=== PATIENT | male | born 1955 | race Caucasian/White ===

== ENCOUNTER → 2017-07-20 07:10 | Outpatient (CLI) | payer OTHER, SELFPAY ==
--- NOTE | 2017-07-20 07:11 | CT_ITS ---
STUDY: CT ABDOMEN AND PELVIS WITH CONTRAST REASON FOR EXAM: Male, 62 years old. Elevated CEA, elevated bilirubin RADIATION DOSAGE (If Supplied By Facility): CTDIvol = ( 14.23 ) mGy, DLP = ( 1137.46 ) mGycm TECHNIQUE: Transaxial images were obtained from the lower chest to the upper thighs with oral contrast. 100 ml of Isovue 300 contrast was administered. Sagittal and coronal images were reconstructed. Individualized dose optimization techniques were used for this CT. COMPARISON: October 27, 2013 FINDINGS: The visualized lung bases are unremarkable. There is no pleural effusion. The heart is normal in size. The liver is unremarkable. There are surgical clips in the gallbladder fossa consistent with a prior cholecystectomy. The spleen is unremarkable. The pancreas is unremarkable. The adrenal glands are unremarkable. There are two nonobstructing stones in the lower pole of the right kidney measuring about 2 mm each, stable. There is no dilatation of the collecting system in the right kidney. There are benign cysts in the left kidney. There is a stable 2 mm nonobstructing stone in the midpole of the left kidney. There are a few stable small nonobstructing stones in the lower pole of the left kidney measuring no more than 2 mm in size. There is no dilatation of the collecting system in the left kidney. The stomach is unremarkable. The small bowel is unremarkable. There are diverticula in the distal colon without adjacent stranding. The appendix is visualized and appears normal. There are minimal vascular calcifications. The inferior vena cava is unremarkable. The retroperitoneum is unremarkable. There is no free fluid in the abdomen. The urinary bladder is unremarkable. The prostate is normal in size with calcifications. There are small phleboliths scattered in the lower pelvis. There is questionable fluid around the right testicle. There are mild degenerative changes in the visualized spine. There are marked degenerative disc changes at L5-S1. CT/Abdomen/Pelvis WITH Contrast IMPRESSION: There are no abnormal masses in the liver or pancreas. There is no biliary ductal dilatation. There is diverticulosis of the distal colon. No abnormal masses are evident within the bowel, however CT is not sensitive for this finding. There is no ascites, free air, inflammation or significant lymphadenopathy. There is a questionable right hydrocele. A scrotal ultrasound can be considered for further evaluation. Electronically Signed: Mini Diaz MD at 17:36 EDT Tel Direct: [phone], Service support ,
== END ==
PROVIDERS: Family Provider Family Medicine; PCP Family Medicine; Visit Provider Family Medicine
DX: R97.0 Elevated carcinoembryonic antigen [CEA] (principal)
CPT/HCPCS: 74177; Q9967

== ENCOUNTER 2017-08-05 07:20 | Day surgery (SDC) | payer OTHER, SELFPAY ==
[2017-08-05 07:45] VITALS: BP 141/89; PULSE 74; RESP 18; TEMP 36.8; O2SAT 99; BMI 27.6
[2017-08-05 08:54] VITALS: BP 112/66; BP 141/89; PULSE 72; RESP 16; TEMP 36.6; O2SAT 97
--- NOTE | 2017-08-05 08:54 | OP.PCM_ITS ---
Operative Report Date of Procedure: 08/05/17 Preop diagnosis: [Patient for screening colonoscopy] Postop diagnosis: [Screening colonoscopy performed no evidence of any polyps in the colon] Anesthesia:[Provided a MAC] Instrument:[Olympus adjustable pediatric colonoscope] Informed consent was taken prior to procedure. The patient was brought to the endoscopy suite and placed in the left shoulder down. Anesthesia provided the MAC. Rectal exam was performed prior to inserting the scope. The colonoscope was passed in the rectum rectal mucosa was normal. Moving up the left colon with a few diverticuli across transverse colon mucosa was normal. Down the right colon the cecum was photographed the appendiceal orifice was noted large polyps in the right colon the patient had an excellent preparation. Terminal ileum was intubated the ileum was normal. Backup the right colon the mucosa was normal there were no large polyps seen across the transverse colon the vascular pedicles remain normal below the splenic flexure down to the left colon there were no large polyps seen. Retroflexion performed the rectum showed internal hemorrhoids the colon was decompressed and the patient tolerated procedure well. Impression: Screening colonoscopy patient had an elevated CEA Plan: Repeat a colonoscopy in 10 [address] CC a [address] Claros in [place]
[2017-08-05 09:00] VITALS: BP 110/78; BP 141/89; PULSE 70; RESP 16; O2SAT 97
[2017-08-05 09:05] VITALS: BP 119/85; BP 141/89; PULSE 70; RESP 14; O2SAT 97
[2017-08-05 09:10] VITALS: BP 118/81; BP 141/89; PULSE 65; RESP 16; TEMP 36.5; O2SAT 96
[2017-08-05 09:41] VITALS: BP 141/89
== END 2017-08-05 09:42 | disposition home or self-care (01) ==
LOC: EN 07:21 → AC 07:22
PROVIDERS: Family Provider Family Medicine; PCP Family Medicine; Visit Provider Internal Medicine Gastroenterology
PROC: 0DJD8ZZ Inspection of Lower Intestinal Tract, Via Natural or Artificial Opening Endoscopic (ICD-10-PCS; CPT 45378; principal; 2017-08-05 08:25)
DX: Z12.11 Encounter for screening for malignant neoplasm of colon (principal); K63.5 Polyp of colon; K57.30 Diverticulosis of large intestine without perforation or abscess without bleeding; K64.8 Other hemorrhoids; R97.0 Elevated carcinoembryonic antigen [CEA]; I10 Essential (primary) hypertension; E78.00 Pure hypercholesterolemia, unspecified; Z87.891 Personal history of nicotine dependence; Z85.820 Personal history of malignant melanoma of skin; Z79.82 Long term (current) use of aspirin; Z79.899 Other long term (current) drug therapy
CPT/HCPCS: 45378; J7120

== ENCOUNTER → 2018-05-12 12:22 | Outpatient (CLI) | payer OTHER, SELFPAY ==
[2018-05-12 14:04] LABS: Absolute Lymphocyte Count 2.07 X10^3/ul (0.83-4.51); Basophil# 0.02 X10^3/uL; Basophil% 0.3 % (0-1); Eosinophil# 0.13 X10^3/uL; Eosinophils% 1.9 % (0-5); Hematocrit 44.7 % (40-54); Hemoglobin 15.3 g/dl (13.0-16.5); Lymphocyte # 2.07 X10^3/ul (4.0); Lymphocyte % 30.1 % (19-41); Mean Corp Hgb Conc 34.2 g/gl (32-36); Mean Corpuscular Hgb 30.7 pg (27.0-32.0); Mean Corpuscular Volume 89.6 fL (80-94); Mean Platelet Vol. 10.1 fl (6.2-12.0); Monocyte# 0.65 X10^3/uL; Monocyte% 9.4 % (0-10); Neutrophil # 3.97 X10^3/uL (2.7-7.7); Neutrophil % 57.7 % (47-70); Platelet Count 250 K/mm3 (150-450); RBC Distribution Width CV 13.2 % (11.6-14.6); RBC Distribution Width SD 42.7 fl (35.1-43.9); Red Blood Count 4.99 M/mm3 (4.6-6.2); White Blood Count 6.9 K/mm3 (4.4-11.0)
[2018-05-12 14:07] LABS: POSITIVE COUNT NO; POSITIVE DIFFERENTIAL NO; POSITIVE MORPHOLOGY NO
[2018-05-12 14:39] LABS: Vitamin B12 540 pg/mL (211-911); Vitamin D,25 Hydroxy 17.8 ng/mL (29.95-100.01)
[2018-05-12 14:42] LABS: ALB/GLOB Ratio 1.1 RATIO (0.9-2.4); AST(SGOT) 22 U/L (15-37); Alanine Aminotransfer ALT/SGPT 28 U/L (16-61); Albumin, Serum 4.1 g/dL (3.2-5.0); Alkaline Phosphatase 75 U/L (45-117); BUN 14 mg/dL (7-18); BUN/Creat Ratio 15.1 RATIO (10-20); Calcium,Total 8.7 mg/dL (8.5-10.1); Creatinine, Serum 0.93 mg/dL (0.70-1.30); EST Glomerular Filtration Rate 88 mL/min (>60); Est Glom Filt Rate - Afr Amer 106 mL/min (>60); Globulin 3.9 g/dL (2.2-4.2); Glucose 85 mg/dL (74-106)
[2018-05-12 14:43] LABS: Anion Gap 8 (5-15); Chloride 107 mmol/L (98-107); PSA,Total - Annual Screen 1.03 ng/mL (0.00-4.00); Potassium 3.7 mmol/L (3.5-5.1); Sodium Level 141 mmol/L (136-145); Thyroid Stim Hormone (TSH) 0.71 uIU/mL (0.358-3.74)
[2018-05-13 00:15] LABS: Rapid Plasmin Reagin (RPR) NONREACTIVE (NONREACTIVE)
[2018-05-13 09:37] LABS: Hep C Antibodies <0.1 s/co ratio (0.0-0.9)
--- OUTSIDE RECORDS SUMMARY | 2018-07-17 04:30 | XMS RPT_ITS ---
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 Community group vitamins / Hospital E53.8(ICD-10) Repository 05/12/2018 Unknown E55.9 - Vitamin D Hayden, Garrison Chi Active [place] deficiency, Community unspecified / Hospital E55.9(ICD-10) Repository 05/12/2018 Unknown G30.9 - Alzheimer's Hayden, Garrison Chi Active [place] disease, unspecified / Community G30.9(ICD-10) Hospital Repository 07/20/2017 Unknown R97.0 - Elevated Florencio Shahram Active [place] carcinoembryonic Community antigen [CEA] / Hospital R97.0(ICD-10) Repository PROCEDURES PROCEDURES No Procedure Records FoundRESULTS RESULTS LOW DOSE CT LUNG Observed: 05/18/2018 Status: F Source: [facility] SCREENING 3:33 PM [facility] REPOSITORY [facility] Imaging Services [address] [place] [address] Lung Screening MR#: [id number] Acct: [id number] Name: [place] ANG[place] Rep #: [id number] : 1955 M 63 From: Jose Mixon MD PCP: Shahram Matias Status: REG CLI Study: Low Dose CT Lung Screening Date of Exam: 05/18/18 Exam# [id number] Ordering Dr: Garrison Blake MD STUDY: LOW DOSE CT LUNG CANCER SCREENING REASON FOR EXAM: Male, 63 years old. 20 pack-year smoking history. RADIATION DOSAGE (If Supplied By Facility): CTDIvol = ( 4.02 ) mGy, DLP = ( 133.41 ) mGycm TECHNIQUE: No contrast was administered. Low dose technique was utilized (average mAS-38 and kVp 120). 1.25 mm axial source images with a slice interval of 1.25- mm were reconstructed in lung windows. 2.5 mm axial source images with a slice interval of 2.5-mm were reconstructed in lung windows. 5.0 mm axial source images with a slice interval of 5.0-mm were reconstructed in soft tissue windows. Nodule measured using lung windows on PACS and/or independent workstation with automated measurement of minimum and maximum diameter. Nodule measurement reported as average diameter rounded to the nearest whole number. Growth is defined as an increase ins size of greater than 1.5 mm. COMPARISON: None. NODULES: No suspicious nodules are seen. Aorta: Atherosclerotic calcification. Coronary arteries: Coronary artery calcification. Other chest and abdominal findings: CT/Low Dose CT Lung Screening IMPRESSION: Lung-RADS category 2 - Continue annual screening with LDCT in 12 months. IMPORTANT NOTES FOR USE: ACR Lung-RADS Version 1.0 Assessment Categories Release Date: August 21, 2013 Category: Coded 0-4 bases on nodule(s) with highest degree of suspicion. Negative screen is defined as categories 1 and 2; a positive screen is defined as categories 3 and 4. Category 3 and 4A nodules that are unchanged on interval CT should be coded as category 2, and individuals returned to screening in 12 months. Category 4X: Category 3 or 4 nodules with additional imaging findings that increase the suspicion of lung cancer, such as spiculation, GGN that doubles in size in 1 year, enlarged lymph notes, etc. Category Modifiers: S (significant finding unrelated to lung cancer) and C (prior history of treated lung cancer) may be added to the 0-4 Lung-RADS Electronically Signed: Jose Mixon MD at 14:17 EST , Service support , CC: Shahram Matias; Garrison Blake MD Assembly Cleaner: Signed CBC W/DIFF, AUTOMATED Collected: 05/12/2018 Status: F Source: [facility] 12:24 PM [facility] REPOSITORY TYPE CODE TESTS RESULT OUT OF RANGE REFERENCE UNITS LAB L100.1000 4.4-11.0 K/mm3 Normal WBC 6.9 LAB L100.1200 4.6-6.2 M/mm3 Normal RBC 4.99 LAB L100.1300 13.0-16.5 g/dl Normal HGB 15.3 LAB L100.1400 40-54 % Normal HCT 44.7 LAB L100.1500 80-94 fL Normal MCV 89.6 LAB L100.1600 27.0-32.0 pg Normal MCH 30.7 LAB L100.1700 32-36 g/gl Normal MCHC 34.2 LAB L100.1810 11.6-14.6 % Normal RDW CV 13.2 LAB L100.1820 35.1-43.9 fl Normal RDW SD 42.7 LAB L100.1900 150-450 K/mm3 Normal PLT 250 LAB L100.2000 6.2-12.0 fl Normal MPV 10.1 LAB L100.2100 47-70 % Normal NEUT% 57.7 LAB L100.2200 19-41 % Normal LY% 30.1 LAB L100.2300 0-10 % Normal MONO% 9.4 LAB L100.2400 0-5 % Normal EO% 1.9 LAB L100.2500 0-1 % Normal BASO% 0.3 LAB L100.2550 0.0-0.9 % Normal IM GRAN % 0.600 Result Comment: IG% - Immature Granulocytes (promyelocytes, myelocytes and metamyelocytes) > 1% indicates that a LEFT SHIFT is Present. LAB L100.2620 2.0-7.7 X10 3/uL Normal Absolute Neut 4.0 LAB L100.2720 0.83-4.51 X10 3/ul Normal Absolute Lymph 2.07 Performed By: #### L100.0100 #### [facility] [address] [place], [address] VITAMIN B12 Collected: 05/12/2018 Status: F Source: [facility] 12:24 PM [facility] REPOSITORY TYPE CODE TESTS RESULT OUT OF RANGE REFERENCE UNITS LAB L503.0105 211-911 pg/mL Normal Vitamin B12 540 Performed By: #### L503.0105, L506.1000 #### [facility] [address] [place], [address] VITAMIN D,25 HYDROXY Collected: 05/12/2018 Status: F Source: [facility] 12:24 PM [facility] REPOSITORY TYPE CODE TESTS RESULT OUT OF REFERENCE UNITS RANGE LAB L506.1000 29.95-100.01 ng/mL Low Vitamin D 17.8 25-OH Result Comment: Vitamin D 25(OH) Status Range Deficiency <20 ng/mL (50nmol/L) Insuffciency 20 - 30 ng/mL (50 - 75 nmol/L) Sufficiency 30 - 100 ng/mL (75 - 250 nmol/L) Toxicity >100 ng/mL (>250 nmol/L) Performed By: #### L503.0105, L506.1000 #### [facility] [address] [place], [address] COMPREHENSIVE METABOLIC Collected: 05/12/2018 Status: F Source: [facility] 12:24 PM [facility] REPOSIT[facility] Order Comment: Is Patient Taking Vitamins or Folic Acid Supplements? N TYPE CODE TESTS RESULT OUT OF RANGE REFERENCE UNITS LAB L501.0100 74-106 mg/dL Normal GLU 85 Result Comment: Please note revised GLUCOSE reference range effective 2017. LAB L501.1000 7-18 mg/dL Normal BUN 14 LAB L501.1100 0.70-1.30 mg/dL Normal CREAT,SERUM 0.93 Result Comment: The validity of the calculated GFR AND GFRAA in patients over 70 years has not been determined. Clinical correlation is essential. LAB L501.1110 >60 mL/min Normal EST GFR 88 Result Comment: Non- GFR Calc LAB L501.1115 >60 mL/min Normal EST GFR - AA 106 Result Comment: GFR Calc LAB L501.1300 10-20 RATIO Normal BUN/CRE 15.1 LAB L501.1500 6.4-8.2 g/dL T Normal PROT 8.0 LAB L501.1800 3.2-5.0 g/dL Normal ALB 4.1 LAB L501.1950 2.2-4.2 g/dL Normal GLOB 3.9 LAB L501.2000 0.9-2.4 RATIO Normal A/G 1.1 LAB L501.2200 8.5-10.1 mg/dL CA Normal 8.7 LAB L501.4100 15-37 U/L Normal AST 22 LAB L501.4305 45-117 U/L Normal ALK P 75 LAB L501.4405 16-61 U/L Normal ALT 28 LAB L501.4600 0.20-1.00 mg/dL High T BILI 1.40 LAB L501.5300 136-145 mmol/L NA Normal 141 LAB L501.5600 3.5-5.1 mmol/L K Normal 3.7 LAB L501.5900 98-107 mmol/L CL Normal 107 LAB L501.6100 21.0-32.0 mmol/L Normal CO2 26.0 LAB L501.6200 5-15 Normal GAP 8 Performed By: #### L500.4050, L501.9520, L501.9910, L506.0250 #### [facility] [address] [place], [address] THYROID STIM HORMONE Collected: 05/12/2018 Status: F Source: [place] (TSH) 12:24 PM [facility] REPOSITORY Order Comment: Is Patient Taking Vitamins or Folic Acid Supplements? N TYPE CODE TESTS RESULT OUT OF RANGE REFERENCE UNITS LAB L501.9520 0.358-3.74 uIU/mL Normal TSH 0.71 Performed By: #### L500.4050, L501.9520, L501.9910, L506.0250 #### [facility] [address] [place], [address] PSA,TOTAL - ANNUAL Collected: 05/12/2018 Status: F Source: [place] SCREEN 12:24 PM [facility] REPOSIT[facility] Order Comment: Is Patient Taking Vitamins or Folic Acid Supplements? N TYPE CODE TESTS RESULT OUT OF RANGE REFERENCE UNITS LAB L501.9910 0.00-4.00 ng/mL Normal PSA,TOT 1.03 SCREEN Result Comment: This test was performed using the TPSA assay method for the [employer] chemistry system. Values obtained with different assay methods cannot be used interchangably. When changing PSA assays in the course of monitoring a patient, additional sequential testing should be carried out to confirm baseline values. Performed By: #### L500.4050, L501.9520, L501.9910, L506.0250 #### [facility] [address] [place], [address] FOLATES, (FOLIC ACID) Collected: 05/12/2018 Status: F Source: [facility] 12:24 PM [facility] REPOSIT[facility] Order Comment: Is Patient Taking Vitamins or Folic Acid Supplements? N TYPE CODE TESTS RESULT OUT OF RANGE REFERENCE UNITS LAB L506.0250 3.1-55.4 ng/mL Normal FOLATES 19.80 Performed By: #### L500.4050, L501.9520, L501.9910, L506.0250 #### [facility] [address] [place], [address] RAPID PLASMIN REAGIN Collected: 05/12/2018 Status: F Source: [facility] (RPR) 12:24 PM [facility] REPOSITORY TYPE CODE TESTS RESULT OUT OF REFERENCE UNITS RANGE LAB L700.5000 NONREACTIVE NONREACTIVE Normal RPR Performed By: #### L700.5000 #### [facility] [address] [place], [address] HEPATITIS C ANTIBODIES Collected: 05/12/2018 Status: F Source: [facility] 12:24 PM [facility] REPOSITORY TYPE CODE TESTS RESULT OUT OF RANGE REFERENCE UNITS LAB L3100.0650 0.0-0.9 s/co ratio Normal HEP C AB <0.1 Result Comment: Negative: < 0.8 Indeterminate: 0.8 - 0.9 Positive: > 0.9 The CDC recommends that a positive HCV antibody result be followed up with a HCV Nucleic Acid Amplification test (027937). Performed at: - [facility] [address] [id number] Swimming Pool Maintenance: Abiel Go PhD, Phone: [phone] Performed By: #### L3100.0625 #### [facility] (refer to report for specific site) refer to report for address and phone number OPERATIVE REPORT Observed: 08/05/2017 Status: F Source: [place] 8:54 AM [facility] REPOSITORY [facility] Medical Records Department [address] [place] [address] Operative Report 08/05/17 0848 MR#: [id number] Acct: [id number] Name: [place] ANGEL Rep #: [id number] : 1955 62 From: Abiel Ha MD PCP: Shahram Matias Status: [facility] Y Location: [place] [address] Operative Report Date of Procedure: 08/05/17 Preop diagnosis: [Patient for screening colonoscopy] Postop diagnosis: [Screening colonoscopy performed no evidence of any polyps in the colon] Anesthesia:[Provided a MAC] Instrument:[Olympus adjustable pediatric colonoscope] Informed consent was taken prior to procedure. The patient was brought to the endoscopy suite and placed in the left shoulder down. Anesthesia provided the MAC. Rectal exam was performed prior to inserting the scope. The colonoscope was passed in the rectum rectal mucosa was normal. Moving up the left colon with a few diverticuli across transverse colon mucosa was normal. Down the right colon the cecum was photographed the appendiceal orifice was noted large polyps in the right colon the patient had an excellent preparation. Terminal ileum was intubated the ileum was normal. Backup the right colon the mucosa was normal there were no large polyps seen across the transverse colon the vascular pedicles remain normal below the splenic flexure down to the left colon there were no large polyps seen. Retroflexion performed the rectum showed internal hemorrhoids the colon was decompressed and the patient tolerated procedure well. Impression: Screening colonoscopy patient had an elevated CEA Plan: Repeat a colonoscopy in [address] Claros in [place] 08/05/17 0854 <Electronically signed by Abiel Ha MD> Date Abiel Ha MD CC: Shahram Matias; Abiel Ha Signed ABDOMEN/PELVIS WITH Observed: 07/20/2017 Status: F Source: [facility] CONTRAST 7:13 AM [facility] REPOSITORY [facility] Imaging Services [address] [place] [address] Abdomen/Pelvis WITH Contrast MR#: [id number] Acct: [id number] Name: [place] Rep #: [id number] : 1955 M 62 From: Mini Diaz MD PCP: Shahram Matias Status: REG CLI Study: Abdomen/Pelvis WITH Contrast Date of Exam: 07/20/17 Exam# [id number] Ordering Dr: Shahram Matias STUDY: CT ABDOMEN AND PELVIS WITH CONTRAST REASON FOR EXAM: Male, 62 years old. Elevated CEA, elevated bilirubin RADIATION DOSAGE (If Supplied By Facility): CTDIvol = ( 14.23 ) mGy, DLP = ( 1137.46 ) mGycm TECHNIQUE: Transaxial images were obtained from the lower chest to the upper thighs with oral contrast. 100 ml of Isovue 300 contrast was administered. Sagittal and coronal images were reconstructed. Individualized dose optimization techniques were used for this CT. COMPARISON: October 27, 2013 FINDINGS: The visualized lung bases are unremarkable. There is no pleural effusion. The heart is normal in size. The liver is unremarkable. There are surgical clips in the gallbladder fossa consistent with a prior cholecystectomy. The spleen is unremarkable. The pancreas is unremarkable. The adrenal glands are unremarkable. There are two nonobstructing stones in the lower pole of the right kidney measuring about 2 mm each, stable. There is no dilatation of the collecting system in the right kidney. There are benign cysts in the left kidney. There is a stable 2 mm nonobstructing stone in the midpole of the left kidney. There are a few stable small nonobstructing stones in the lower pole of the left kidney measuring no more than 2 mm in size. There is no dilatation of the collecting system in the left kidney. The stomach is unremarkable. The small bowel is unremarkable. There are diverticula in the distal colon without adjacent stranding. The appendix is visualized and appears normal. There are minimal vascular calcifications. The inferior vena cava is unremarkable. The retroperitoneum is unremarkable. There is no free fluid in the abdomen. The urinary bladder is unremarkable. The prostate is normal in size with calcifications. There are small phleboliths scattered in the lower pelvis. There is questionable fluid around the right testicle. There are mild degenerative changes in the visualized spine. There are marked degenerative disc changes at L5-S1. CT/Abdomen/Pelvis WITH Contrast IMPRESSION: There are no abnormal masses in the liver or pancreas. There is no biliary ductal dilatation. There is diverticulosis of the distal colon. No abnormal masses are evident within the bowel, however CT is not sensitive for this finding. There is no ascites, free air, inflammation or significant lymphadenopathy. There is a questionable right hydrocele. A scrotal ultrasound can be considered for further evaluation. Electronically Signed: Mini Diaz MD at 17:36 EDT Tel Direct: [phone], Service support , CC: Shahram Matias Assembly Cleaner: Signed ALLERGIES ALLERGIES DATE TYPE / CODE NAME / CODE REACTION SEVERITY SOURCE 08/03/2017 Drug No Known Unknown [facility] Allergy/4160 Allergies/F00 [facility] 85992(SNOMED [id number](RXNOR Repository CT) M) ENCOUNTERS ENCOUNTERS ADMIT/DISCHARGE ACCOUNT ADMITTING ENCOUNTER LOCATION SOURCE NUMBER CLASS 05/18/2018 [id number] Ambulatory [address] ing:CT Repository 05/12/2018 [id number] Ambulatory [address] ing:POLAB3 Repository 08/05/2017/ [id number] Ambulatory [place] [facility] ing:EN Repository 07/20/2017 [id number] Ambulatory [place] [facility] ing:CT Repository PAYERS PAYERS ENCOUNTER GUARANTOR PAYER SUBSCRIBER SOURCE 05/18/2018 [place] H Primary Insurance:[facility] REINA LOUB: [place] [id number] [facility] [id number] Number: Repository [id number]: 330 [id number] [phone] (HP) Date:5150-46-81CT [address] [address], [place] [address]EN: CHECK WEBSITE 05/18/2018 Secondary NOT GIVENUNK [place] Insurance:SELF PAY [facility] Number: Effective Repository Date:2018-05-12 05/12/2018 Mil H Primary Insurance:[facility] REINAJeremiah ANGELB: [place] [id number] [facility] [id number], [place] Number: Repository [id number]: 330 [id number] [phone] () Date:3527-65-58KK [address] [address], [place] [address]QV: CHECK WEBSITE 05/12/2018 Secondary NOT GIVENUNK [place] Insurance:SELF PAY [facility] Number: Effective Repository Date:2018-05-12 08/05/2017 Mil H Primary Insurance:[facility] REINA ANGELB: [place] [id number] [facility] [id number] Number: Repository [id number]: 330 [id number] [phone] () Date:6635-72-50TG [address] [address], [place] [address]JA: CHECK WEBSITE 08/05/2017 Secondary NOT GIVENUNK [place] Insurance:SELF PAY [facility] Number: Effective Repository Date:2017-08-02 07/20/2017 Mil H Primary Insurance:[facility] REINA DAMON: [place] Angel2609 [facility] [id number] [place], [place] Number: Repository [id number]: (328) [id number] [phone] () Date:6146-02-83KQ [address] [address], [place] [address]PZ: CHECK WEBSITE 07/20/2017 Secondary NOT GIVENDEMETRIUS [place] Insurance:SELF PAY [facility] Number: Effective Repository Date:2017-07-12
== END ==
PROVIDERS: PCP Family Medicine; Visit Provider Family Medicine Geriatric Medicine
DX: Z00.00 Encounter for general adult medical examination without abnormal findings (principal); E53.8 Deficiency of other specified B group vitamins; E55.9 Vitamin D deficiency, unspecified; G30.9 Alzheimer's disease, unspecified; Z12.5 Encounter for screening for malignant neoplasm of prostate; Z13.89 Encounter for screening for other disorder
CPT/HCPCS: 36415; 80053; 82306; 82607; 82746; 84153; 84443; 85025; 86592; 86803; G0103

== ENCOUNTER → 2018-05-18 15:29 | Outpatient (CLI) | payer OTHER, SELFPAY ==
--- NOTE | 2018-05-18 15:33 | CT_ITS ---
STUDY: LOW DOSE CT LUNG CANCER SCREENING REASON FOR EXAM: Male, 63 years old. 20 pack-year smoking history. RADIATION DOSAGE (If Supplied By Facility): CTDIvol = ( 4.02 ) mGy, DLP = ( 133.41 ) mGycm TECHNIQUE: No contrast was administered. Low dose technique was utilized (average mAS-38 and kVp 120). 1.25 mm axial source images with a slice interval of 1.25-mm were reconstructed in lung windows. 2.5 mm axial source images with a slice interval of 2.5-mm were reconstructed in lung windows. 5.0 mm axial source images with a slice interval of 5.0-mm were reconstructed in soft tissue windows. Nodule measured using lung windows on PACS and/or independent workstation with automated measurement of minimum and maximum diameter. Nodule measurement reported as average diameter rounded to the nearest whole number. Growth is defined as an increase ins size of greater than 1.5 mm. COMPARISON: None. NODULES: No suspicious nodules are seen. Aorta: Atherosclerotic calcification. Coronary arteries: Coronary artery calcification. Other chest and abdominal findings: CT/Low Dose CT Lung Screening IMPRESSION: Lung-RADS category 2 - Continue annual screening with LDCT in 12 months. IMPORTANT NOTES FOR USE: ACR Lung-RADS Version 1.0 Assessment Categories Release Date: August 21, 2013 Category: Coded 0-4 bases on nodule(s) with highest degree of suspicion. Negative screen is defined as categories 1 and 2; a positive screen is defined as categories 3 and 4. Category 3 and 4A nodules that are unchanged on interval CT should be coded as category 2, and individuals returned to screening in 12 months. Category 4X: Category 3 or 4 nodules with additional imaging findings that increase the suspicion of lung cancer, such as spiculation, GGN that doubles in size in 1 year, enlarged lymph notes, etc. Category Modifiers: S (significant finding unrelated to lung cancer) and C (prior history of treated lung cancer) may be added to the 0-4 Lung-RADS Electronically Signed: Jose Mixon MD at 14:17 EST , Service support ,
--- OUTSIDE RECORDS SUMMARY | 2018-07-20 18:02 | XMS RPT_ITS ---
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, Community unspecified / Hospital E55.9(ICD-10) Repository 05/12/2018 Unknown G30.9 - Alzheimer's Hayden, Garrison Chi Active [place] disease, unspecified / Community G30.9(ICD-10) Hospital Repository 07/20/2017 Unknown R97.0 - Elevated Florencio Shahram Active [place] carcinoembryonic Community antigen [CEA] / Hospital R97.0(ICD-10) Repository PROCEDURES PROCEDURES No Procedure Records FoundRESULTS RESULTS LOW DOSE CT LUNG Observed: 05/18/2018 Status: F Source: [place] SCREENING 3:33 PM [facility] Imaging Services [address] [place] [address] Lung Screening MR#: [id number] Acct: [id number] Name: [place] Rep #: [id number] : 1955 M 63 From: Jose Mixon MD PCP: Shahram Matias Status: REG CLI Study: Low Dose CT Lung Screening Date of Exam: 05/18/18 Exam# [id number] Ordering Dr: Garrison Blake MD STUDY: LOW [...] , CC: Shahram Matias; Garrison Blake MD Carton Marker Machine: Signed CBC W/DIFF, AUTOMATED Collected: 05/12/2018 Status: F Source: [place] 12:24 PM [facility] TYPE CODE TESTS RESULT OUT OF [...] Lymph 2.07 Performed By: #### L100.0100 #### [facility] [address] [place], [address] VITAMIN B12 Collected: 05/12/2018 Status: F Source: [place] 12:24 PM [facility] TYPE CODE TESTS RESULT OUT OF RANGE REFERENCE UNITS LAB L503.0105 211-911 pg/mL Normal Vitamin B12 540 Performed By: #### L503.0105, L506.1000 #### [facility] [address] [place], [address] VITAMIN D,25 HYDROXY Collected: 05/12/2018 Status: F Source: [place] 12:24 PM [facility] TYPE CODE TESTS RESULT OUT OF REFERENCE UNITS RANGE LAB L506.1000 29.95-100.01 ng/mL Low Vitamin D 17.8 25-OH Result Comment: Vitamin D 25(OH) Status Range Deficiency <20 ng/mL (50nmol/L) Insuffciency 20 - 30 ng/mL (50 - 75 nmol/L) Sufficiency 30 - 100 ng/mL (75 - 250 nmol/L) Toxicity >100 ng/mL (>250 nmol/L) Performed By: #### L503.0105, L506.1000 #### [facility] [address] [place], [address] COMPREHENSIVE METABOLIC Collected: 05/12/2018 Status: F Source: [facility] 12:24 PM [facility] Order Comment: Is Patient Taking Vitamins [...] By: #### L500.4050, L501.9520, L501.9910, L506.0250 #### [facility] [address] [place], [address] THYROID STIM HORMONE Collected: 05/12/2018 Status: F Source: [place] (TSH) 12:24 PM [facility] Order Comment: Is Patient Taking Vitamins or Folic Acid Supplements? N TYPE CODE TESTS RESULT OUT OF RANGE REFERENCE UNITS LAB L501.9520 0.358-3.74 uIU/mL Normal TSH 0.71 Performed By: #### L500.4050, L501.9520, L501.9910, L506.0250 #### [facility] [address] [place], [address] PSA,TOTAL - ANNUAL Collected: 05/12/2018 Status: F Source: [place] SCREEN 12:24 PM [facility] Order Comment: Is Patient Taking Vitamins or Folic Acid Supplements? N TYPE CODE TESTS RESULT OUT OF RANGE REFERENCE UNITS LAB L501.9910 0.00-4.00 ng/mL Normal PSA,TOT 1.03 SCREEN Result Comment: This test was performed using the TPSA assay method for the Cherrish chemistry system. Values obtained with different assay methods cannot be used interchangably. When changing PSA assays in the course of monitoring a patient, additional sequential testing should be carried out to confirm baseline values. Performed By: #### L500.4050, L501.9520, L501.9910, L506.0250 #### [facility] [address] [place], [address] FOLATES, (FOLIC ACID) Collected: 05/12/2018 Status: F Source: [place] 12:24 PM [facility] Order Comment: Is Patient Taking Vitamins or Folic Acid Supplements? N TYPE CODE TESTS RESULT OUT OF RANGE REFERENCE UNITS LAB L506.0250 3.1-55.4 ng/mL Normal FOLATES 19.80 Performed By: #### L500.4050, L501.9520, L501.9910, L506.0250 #### [facility] [address] [place], [address] RAPID PLASMIN REAGIN Collected: 05/12/2018 Status: F Source: [place] (RPR) 12:24 PM [facility] TYPE CODE TESTS RESULT OUT OF REFERENCE UNITS RANGE LAB L700.5000 NONREACTIVE NONREACTIVE Normal RPR Performed By: #### L700.5000 #### [facility] [address] [place], [address] HEPATITIS C ANTIBODIES Collected: 05/12/2018 Status: F Source: [place] 12:24 PM [facility] TYPE CODE TESTS RESULT OUT OF RANGE REFERENCE UNITS LAB L3100.0650 0.0-0.9 s/co ratio Normal HEP C AB <0.1 Result Comment: Negative: < 0.8 Indeterminate: 0.8 - 0.9 Positive: > 0.9 The CDC recommends that a positive HCV antibody result be followed up with a HCV Nucleic Acid Amplification test (216693). Performed at: - [facility] [address] [id number] Video Production Engineer: Abiel Go PhD, Phone: [phone] Performed By: #### L3100.0625 #### [facility] (refer to report for specific site) refer to report for address and phone number OPERATIVE REPORT Observed: 08/05/2017 Status: F Source: [place] 8:54 AM [facility] Medical Records Department [address] [place] [address] Operative Report 08/05/17 0848 MR#: [id number] Acct: [id number] Name: [place] Rep #: [id number] : 1955 62 From: Abiel Ha MD PCP: Shahram Matias Status: [facility] Y Location: [place] [address] Operative Report Date of Procedure: 08/05/17 Preop [...] years CC a copy Dr. Claros in [place] 08/05/17 0854 <Electronically signed by Abiel Ha MD> Date Abiel Ha MD CC: Shahram Matias; Abiel Ha Signed ABDOMEN/PELVIS WITH Observed: 07/20/2017 Status: F Source: [place] CONTRAST 7:13 AM [facility] Imaging Services [address] [place] [address] Abdomen/Pelvis WITH Contrast MR#: [id number] Acct: [id number] Name: [place] ANG[place] Rep #: [id number] : 1955 M 62 From: Mini Diaz MD PCP: Shahram Matias Status: REG CLI Study: Abdomen/Pelvis WITH Contrast Date of Exam: 07/20/17 Exam# [id number] Ordering Dr: Shahram Matias STUDY: CT ABDOMEN [...] Diaz MD at 17:36 EDT Tel Direct: [phone], Service support , CC: Shahram Matias Carton Marker Machine: Signed ALLERGIES ALLERGIES DATE TYPE / CODE NAME / CODE REACTION SEVERITY SOURCE 08/03/2017 Drug No Known Unknown [facility] Allergy/4160 Allergies/F00 [facility] 82082(SNOMED [id number](RXNOR Repository CT) M) ENCOUNTERS ENCOUNTERS ADMIT/DISCHARGE ACCOUNT ADMITTING ENCOUNTER LOCATION SOURCE NUMBER CLASS 05/18/2018 [id number] Ambulatory [address] ing:CT Repository 05/12/2018 [id number] Ambulatory [address] ing:POLAB3 Repository 08/05/2017/ [id number] Ambulatory [place] [facility] ing:EN Repository 07/20/2017 [id number] Ambulatory [place] 6 [facility] ing:CT Repository PAYERS PAYERS ENCOUNTER GUARANTOR PAYER SUBSCRIBER SOURCE 05/18/2018 [place] Primary Insurance:[facility] REINA LOUB: [place] [id number] [facility] [id number] Repository [id number]: 330 [id number] [phone] (HP) Date:4488-93-18OS [address] [address], [place] [address]QB: CHECK WEBSITE 05/18/2018 Secondary NOT GIVENUNK [place] Insurance:SELF PAY [facility] Number: Effective Repository Date:2018-05-12 05/12/2018 [place] Primary Insurance:[facility] REINAJeremiah ANGELB: [place] [id number] [facility] [id number] Number: Repository [id number]: 330 [id number] [phone] () Date:8179-17-59[address] [address], [place] [address]BO: CHECK WEBSITE 05/12/2018 Secondary NOT GIVENUNK [place] Insurance:SELF PAY [facility] Number: Effective Repository Date:2018-05-12 08/05/2017 [place] Primary Insurance:[facility] REINA ANGELB: [place] [id number] [facility] [id number] Number: Repository [id number]: 330 [id number] [phone] () Date:4853-52-64XW [address] [address], [place] [address]UB: CHECK WEBSITE 08/05/2017 Secondary NOT GIVENUNK [place] Insurance:SELF PAY [facility] Number: Effective Repository Date:2017-08-02 07/20/2017 [place] Primary Insurance:[facility] REINA DAMON: [place] [id number] [facility] [id number] [place], [place] Number: Repository [id number]: [phone] [id number] [phone] () Date:2504-80-59MA [address] [address], [place] [address]LF: CHECK WEBSITE 07/20/2017 Secondary NOT GIVENDEMETRIUS [place] Insurance:SELF PAY [facility] Number: Effective Repository Date:2017-07-12
== END ==
PROVIDERS: Family Provider Family Medicine; PCP Family Medicine; Referring Provider Family Medicine Geriatric Medicine; Visit Provider Family Medicine Geriatric Medicine
DX: Z87.891 Personal history of nicotine dependence (principal)
CPT/HCPCS: G0297

== ENCOUNTER → 2019-09-16 08:45 | Outpatient (CLI) | payer OTHER, SELFPAY ==
[2019-04-05 15:33] VITALS: BMI 27.6
--- NOTE | 2019-09-16 09:03 | RAD_ITS ---
STUDY: X-RAY CHEST REASON FOR EXAM: Male, 64 years old. ABN LUNG SOUNDS. NO CHEST COMPLAINTS TODAY TECHNIQUE: PA and lateral views of the chest. COMPARISON: 03/17/2017 FINDINGS: The lungs are clear and expanded. There is no demonstrated pleural abnormality. Normal size heart. Normal mediastinum and wili. Normal visualized pulmonary arteries. There is atherosclerotic calcification of the aortic arch with tortuosity. There are diffuse degenerative changes of the visualized thoracic spine. Normal visualized ribs, clavicles, and shoulders. Cholecystectomy clips are present. RAD/Chest PA and Lateral IMPRESSION: Stable, nonacute x-ray examination of the chest. Electronically Signed: Jose Buenrostro MD ([place]) at 13:47 EDT , Service support ,
== END ==
PROVIDERS: PCP Family Medicine; Referring Provider Family Medicine; Visit Provider Family Medicine
DX: R09.89 Other specified symptoms and signs involving the circulatory and respiratory systems (principal)
CPT/HCPCS: 71046

== ENCOUNTER 2020-07-02 15:47 | Outpatient (RCR) | payer MEDICARE, SELFPAY ==
[2019-12-21 10:13] VITALS: BMI 27.6
[2020-07-02] MEDS: COVID-19 VACC, MRNA(PFIZER)/PF 30 MCG/0.3 ML SYRINGE IM (11:10)
[2020-07-23] MEDS: COVID-19 VACC, MRNA(PFIZER)/PF 30 MCG/0.3 ML SYRINGE IM (10:51)
== END 2020-10-01 23:59 ==
LOC: IMMUN 15:47
PROVIDERS: PCP Family Medicine; Referring Provider Family Medicine; Visit Provider Family Medicine
DX: Z23 Encounter for immunization (principal)
CPT/HCPCS: 0001A; 0002A; 91300

== ENCOUNTER → 2020-07-12 10:03 | Outpatient (CLI) | payer MEDICARE, SELFPAY ==
[2019-12-21 10:13] VITALS: BMI 27.6
--- NOTE | 2020-07-12 10:12 | RAD_ITS ---
STUDY: X-RAY CHEST REASON FOR EXAM: Male, 65 years old. ABN LUNG SOUNDS TECHNIQUE: PA and lateral views of the chest. COMPARISON: 09/16/2019 FINDINGS: The lungs are clear and expanded. There is no demonstrated pleural abnormality. Normal size heart. Normal mediastinum and wili. Normal visualized pulmonary arteries. Normal visualized aortic arch and descending thoracic aorta. Normal visualized thoracic spine. Normal visualized ribs, clavicles, and shoulders. There is no demonstrated abnormality of the visualized soft tissue structures of the upper abdomen. RAD/Chest PA and Lateral IMPRESSION: Normal x-ray examination of the chest. Electronically Signed: Wesley Burroughs MD at 10:10 EDT Tel , Service support ,
== END ==
PROVIDERS: PCP Family Medicine; Referring Provider Family Medicine; Visit Provider Family Medicine
DX: R09.89 Other specified symptoms and signs involving the circulatory and respiratory systems (principal)
CPT/HCPCS: 71046

== ENCOUNTER → 2022-09-08 | Outpatient (CLI) | payer MEDICARE, SELFPAY ==
[2022-09-08 12:24] LABS: Absolute Lymphocyte Count 2.28 X10^3/uL (0.83-4.51); Absolute Neutrophil Count 4.5 X10^3/uL (2.0-7.7); Basophil# 0.05 X10^3/uL; Basophil% 0.7 % (0-1); Eosinophil# 0.13 X10^3/uL; Eosinophils% 1.7 % (0-5); Hemoglobin 15.9 g/dL (13.0-16.5); Lymphocyte # 2.28 X10^3/ul (0.83-4.51); Lymphocyte % 29.8 % (19-41); Mean Corp Hgb Conc 34.6 g/dL (32-36); Mean Corpuscular Hgb 31.1 pg (27.0-32.0); Monocyte# 0.63 X10^3/uL; Monocyte% 8.2 % (0-10); NRBC Flagged by Analyzer 0 % (0-5); Neutrophil # 4.54 X10^3/uL (2.7-7.7); Neutrophil % 59.2 % (47-70); Platelet Count 252 K/mm3 (150-450); RBC Distribution Width CV 12.7 % (11.6-14.6); RBC Distribution Width SD 41.8 fl (35.1-43.9); Red Blood Count 5.11 M/mm3 (4.6-6.2); White Blood Count 7.7 K/mm3 (4.4-11.0)
[2022-09-08 13:12] LABS: AST(SGOT) 20 U/L (15-37); Alanine Aminotransfer ALT/SGPT 25 U/L (16-61); Albumin, Serum 3.9 g/dL (3.2-5.0); Alkaline Phosphatase 65 U/L (45-117); Anion Gap 8 (5-15); BUN 14 mg/dL (7-18); BUN/Creat Ratio 11.9 RATIO (10-20); Calcium,Total 8.9 mg/dL (8.5-10.1); Chloride 106 mmol/L (98-107); Cholesterol 197 mg/dL (200); Creatinine, Serum 1.18 mg/dL (0.70-1.30); EST Glomerular Filtration Rate 65 mL/min (>60); Est Glom Filt Rate - Afr Amer 79 mL/min (>60); Globulin 3.9 g/dL (2.2-4.2); Glucose 99 mg/dL (74-106); High Density Lipoprotein 46 mg/dL; Potassium 3.8 mmol/L (3.5-5.1); Protein, Total 7.8 g/dL (6.4-8.2); Sodium Level 140 mmol/L (136-145); Triglycerides 170 mg/dL; Very Low Density Lipoprotein 34 mg/dL (5-40)
[2022-09-08 13:52] LABS: Vitamin D,25 Hydroxy 28.5 ng/mL
== END | disposition home or self-care (01) ==
PROVIDERS: PCP Family Medicine; Visit Provider Internal Medicine
DX: F03.90 Unspecified dementia, unspecified severity, without behavioral disturbance, psychotic disturbance, mood disturbance, and anxiety (principal); E55.9 Vitamin D deficiency, unspecified; I10 Essential (primary) hypertension
CPT/HCPCS: 36415; 80053; 80061; 82306; 85025

== ENCOUNTER → 2022-09-22 | Outpatient (CLI) | payer MEDICARE, SELFPAY ==
--- NOTE | 2022-09-22 08:41 | AAAS_ITS ---
Reason For Study: screening, former smoker Aorta Measurements Aorta Doppler Measurements Proximal aorta measures1.43 x 1.34cm. in cross- Peak systolic flow velocities within the proximal sectional axis. aorta measure 88.6 cm/sec. Proximal aorta measures1.43cm. in longitudinal Peak systolic flow velocities within the mid aorta axis. measure 92.2 cm/sec. Mid aorta measures1.61 x 1.56cm. in cross- Peak systolic flow velocities within the distal sectional axis. aorta measure 79.6 cm/sec. Mid aorta measures1.69cm. in longitudinal axis. Distal aorta measures1.74 x 1.63cm. in cross- sectional axis. Distal aorta measures1.74cm. in longitudinal axis. Left Iliac Artery Left iliac artery measures 1.23 x 1.3 cm. in the cross-sectional axis. Left iliac artery measures 1.25 cm. in the longitudinal axis. Peak systolic velocity in the left iliac artery measures 72.3 cm/sec. Right Iliac Artery Right iliac artery measures 1.27 x 1.29 cm. in the cross-sectional axis. Right iliac artery measures 1.27 cm. in the longitudinal axis. Peak systolic velocity in the right iliac artery measures 79.6 cm/sec. Procedure Aorta IVC Iliac vasculature or bypass grafts 90443. The exam was diagnostic. Exam performed in department. VL/AAA Screening Interpretation Summary Aorta patent, normal caliber Bilateral iliac arteries patent, normal caliber Ordering Physician: Debora Koch Performed By: Tahir Pandey RVT
== END | disposition home or self-care (01) ==
PROVIDERS: PCP Internal Medicine; Referring Provider Internal Medicine; Visit Provider Internal Medicine
DX: Z13.6 Encounter for screening for cardiovascular disorders (principal); Z87.891 Personal history of nicotine dependence
CPT/HCPCS: 76706

== ENCOUNTER 2023-05-19 17:59 | Emergency (ER) | payer MEDICARE, SELFPAY ==
[2023-05-19 18:00] VITALS: BP 155/99; PULSE 89; RESP 17; TEMP 36.6; O2SAT 98; BMI 30.7
[2023-05-19 18:18] LABS: Bacteria 0 SEEN /hpf (None Seen); Mucous, Urine 0 SEEN /hpf (<or=2+); Squamous Epithelial Cells - UA 0 SEEN /hpf (0-5)
[2023-05-19 18:38] LABS: Absolute Lymphocyte Count 2.63 X10^3/uL (0.83-4.51); Absolute Neutrophil Count 7.6 X10^3/uL (2.0-7.7); Basophil# 0.06 X10^3/uL; Basophil% 0.5 % (0-1); Eosinophil# 0.08 X10^3/uL; Eosinophils% 0.7 % (0-5); Hematocrit 43.3 % (40-54); Hemoglobin 15.3 g/dL (13.0-16.5); Lymphocyte # 2.63 X10^3/ul (0.83-4.51); Lymphocyte % 23.5 % (19-41); Mean Corp Hgb Conc 35.3 g/dL (32-36); Mean Corpuscular Hgb 30.9 pg (27.0-32.0); Mean Corpuscular Volume 87.5 fL (80-94); Mean Platelet Vol. 8.9 fl (6.2-12.0); Monocyte# 0.79 X10^3/uL; Monocyte% 7.1 % (0-10); NRBC Flagged by Analyzer 0 % (0-5); Neutrophil # 7.56 X10^3/uL (2.7-7.7); Neutrophil % 67.8 % (47-70); Platelet Count 306 K/mm3 (150-450); RBC Distribution Width CV 12.6 % (11.6-14.6); Red Blood Count 4.95 M/mm3 (4.6-6.2); White Blood Count 11.2 K/mm3 (4.4-11.0)
[2023-05-19 18:40] LABS: Color, Urine Yellow (Yellow); Glucose, Dipstick 50 mg/dl (Normal); Ketone-Dipstick 5 mg/dl (Negative); Leukocyte Esterase-Dipstick Negative /ul (Negative); Nitrite-Dipstick Negative (Negative); Occult Blood-Urine 250 /ul (Negative); Protein-Dipstick 30 mg/dl (Negative); Specific Gravity, Urine 1.015 (1.002-1.030); Urine Bilirubin Dipstick Negative (Negative); Urine Clarity Clear (Clear); Urine Urobilinogen 1 mg/dl (Normal); Urine pH 6.5 (5.0 - 8.0)
[2023-05-19 18:49] LABS: Red Blood Cells-Urine 50-100 SEEN /hpf (0-5); White Blood Cells 0-5 SEEN /hpf (0-5)
[2023-05-19 18:53] LABS: AST(SGOT) 15 U/L (15-37); Alanine Aminotransfer ALT/SGPT 29 U/L (16-61); Albumin, Serum 4.1 g/dL (3.2-5.0); Alkaline Phosphatase 75 U/L (45-117); Anion Gap 4 (5-15); BUN 17 mg/dL (7-18); BUN/Creat Ratio 13.2 RATIO (10-20); Calcium,Total 9.4 mg/dL (8.5-10.1); Chloride 105 mmol/L (98-107); Creatinine, Serum 1.29 mg/dL (0.70-1.30); EST Glomerular Filtration Rate 59 mL/min (>60); Est Glom Filt Rate - Afr Amer 71 mL/min (>60); Estimated Creatinine Clearance 65.99 ml/min; Glucose 121 mg/dL (74-106); Potassium 3.6 mmol/L (3.5-5.1); Protein, Total 8.1 g/dL (6.4-8.2); Sodium Level 135 mmol/L (136-145)
[2023-05-19 19:28] VITALS: BP 146/89; PULSE 92; RESP 18; TEMP 36.8; O2SAT 96
--- NOTE | 2023-05-19 19:52 | CT_ITS ---
STUDY: CT ABDOMEN AND PELVIS WITH CONTRAST REASON FOR EXAM: Male, 68 years old. abd pain TECHNIQUE: Transaxial images were obtained from the dome of the diaphragm to the symphysis pubis without oral contrast. IV 100mL Isovue-370 was administered. Sagittal and coronal images were reconstructed. Individualized dose optimization techniques were used for this CT. COMPARISON: 07/20/2017. FINDINGS: The visualized lung bases are unremarkable. The visualized portions of the heart are within normal limits. Normal liver. There are surgical clips in the gallbladder fossa consistent with a prior cholecystectomy. Normal spleen. Normal pancreas. Normal bilateral adrenal glands. Right kidney shows mild hydronephrosis and there is mild hydroureter down to a 5 mm distal right ureteral stone seen on axial image 96 and coronal image 79. Additional small nonobstructing stone seen in the right lower pole. Left kidney has multiple small nonobstructing stones in the mid kidney and lower poles. Small simple cysts are seen. Evaluation of the GI tract is limited by absence of oral contrast. Mild hiatal hernia. Cannot exclude stomach wall thickening. No dilated loops of bowel or evidence for obstruction. Cannot exclude segmental thickening of the goode of the small or large bowel. Cannot exclude enteritis or colitis. Moderate diffuse fecal retention. Diverticulosis without definite diverticulitis. Appendix within normal limits. Tortuous aorta with scattered calcifications, no aneurysm. Normal inferior vena cava. Normal retroperitoneum. Normal urinary bladder. There are prostatic calcifications. Normal abdominal wall. Normal osseous structures. CT/Abdomen/Pelvis W IV Cont ONLY IMPRESSION: Obstruction of the right kidney collecting system and ureter from a 5 mm distal right ureteral stone. Additional currently nonobstructing bilateral renal stones. Electronically Signed: Jonathan Gage MD at 21:04 EST ,
--- NOTE | 2023-05-19 19:52 | EDS_ITS ---
HPI HPI - GI History of Present Illness Chief Complaint: Abd Pain Detail of Chief Complaint: Lower abdominal and back pain. Informant: patient, spouse/S.O. and family Abdominal Pain/Flank Pain Onset: Today Context: Gradual Onset Timing: Intermittent Quality: Dull Current Severity: Mild Maximum Severity: Mild Worsened by: Nothing Relieved by: Nothing Nausea/Vomiting/Emesis GI Symptom: Negative for Nausea or Vomiting Diarrhea/Melena/Hematochezia GI Symptom: Negative for Diarrhea, Melena or Hematochezia Associated Symptoms Associated Symptoms: Negative for Dysuria, Frequency or Hematuria Narrative Narrative: 68-year-old male with dementia and hypertension prior cholecystectomy no other abdominal or pelvic surgeries no bladder or prostate surgeries. Has lower abdominal back pain today. [facility] was sent to the emergency department. Denies any dysuria nor any hematuria. No fever or chills. No diarrhea. No constipation. No weight loss. No prior history. No recent abdominal trauma or surgery. He has urinated 3 times over has been in the waiting room. He has had a bowel movement today. Patient himself is a limited informant but his and family are helping with history. Prior similar symptoms: No Recent Illness/Hospitalization: No PFSH PFSH Medical History Anxiety Dementia History of melanoma Hypertension Home Medications aspirin 81 mg chewable tablet 81 mg PO DAILY@0800 10/27/13 [History Last Taken 08/03/17] loratadine 10 mg tablet (Claritin) 10 mg PO DAILY #3 tabs 03/08/23 [Rx Last Taken Unknown] amlodipine 10 mg-benazepril 40 mg capsule 1 cap PO DAILY #90 caps 03/29/23 [Rx Last Taken Unknown] donepezil 10 mg tablet 10 mg PO DAILY #90 tabs 03/29/23 [Rx Last Taken Unknown] paroxetine HCl 10 mg tablet 10 mg PO DAILY #90 tabs 04/21/23 [Rx Last Taken Unknown] atorvastatin 10 mg tablet (Lipitor) 10 mg PO QHS #90 tabs 05/05/23 [Rx Last Taken Unknown] memantine 5 mg tablet 5 mg PO TID #270 tabs 05/05/23 [Rx Last Taken Unknown] tamsulosin 0.4 mg capsule (Flomax) 0.4 mg PO DAILY 3 days #3 caps 05/19/23 [Rx Last Taken Unknown] Allergy/AdvReac Type Severity Reaction Status Date / Time No Known Allergies Allergy Verified 05/19/23 18:01 Family History Mother Cancer Skin CA Hypertension Father Cancer Skin CA Myocardial infarction, Onset Age: 69 Brother Cancer Skin CA Surgical History History of cholecystectomy History of colonoscopy Social History household members: spouse current occupational status: retired current occupation: dedicated local truck driver [employer] Smoking Status: Former smoker quit date: 04/26/88 pack-years: 10 Electronic Cigarette Use: not used alcohol intake: current alcohol intake frequency: a few times a month substance use type: does not use what type of physical activity do you participate in: walking and other details: walking with bowling do you feel safe at home: Yes ROS ROS ED ROS Narrative Lower abdominal and back pain. No vomiting diarrhea or fever. No weight loss. Review of Systems ROS Unobtainable: Denies due to encephalopathy Constitutional Constitutional ED: Denies chills or fever(s) ENT ENT ED: Denies ear pain Cardiovascular Cardiovascular: Denies chest pain Respiratory/Chest Respiratory/Chest: Denies cough or dyspnea Gastrointestinal Gastrointestinal: Reports abdominal pain; Denies constipation, diarrhea, melena, nausea or vomiting Genitourinary Genitourinary ED: Reports urinary frequency; Denies dysuria or hematuria Musculoskeletal Musculoskeletal: Denies arthralgias, back pain, myalgias or neck pain Integumentary Denies abscess, Abrasions or rash Neurologic Neurologic: Denies headache(s) Psychiatric Psychiatric: Denies anxiety or depression Endocrine Endocrinology: Denies polydipsia or polyphagia Hematologic/Lymphatic Hematologic/Lymphatic: Denies easy bleeding Allergic/Immunologic Allergic/Immunologic ED: Denies mouth swelling or tongue swelling EXAM Physical Exam Narrative Exam Narrative: Well-appearing 68-year-old male. Vital signs are stable afebrile. H EENT exam unremarkable. Lungs clear. Heart regular rhythm rate about 90 no murmur. Chest wall and ribs nontender. Abdomen soft, nondistended, normal bowel sounds without peritoneal signs. No right upper or right lower quadrant tenderness. No suprapubic tenderness. No pulsatile mass. Moving all 4 extremities. Nontender no edema. Back nontender no CVA tenderness. Neurologically is awake alert. He is answering questions following commands. He does have dementia. Const Vital Signs: 05/19/23 18:00 05/19/23 19:28 05/19/23 19:28 Temperature 97.8 F 98.3 F 98.3 F Temperature Source Temporal Oral Oral Pulse Rate 89 92 92 Respiratory Rate 17 18 18 Blood Pressure 155/99 H 146/89 H 146/89 H Blood Pressure Mean 117 108 108 Pulse Ox 98 96 96 Oxygen Delivery Method Room Air Room Air Room Air Positive well nourished and well developed; Negative for cachectic, contractures or unkempt General Appearance ED: well developed and NAD; Negative for unkempt, cachectic, contractures or pallor Nutritional Appearance: Negative for cachectic HEENT Reports moist mucous membranes; Denies dry mucous membranes normocephalic and atraumatic; Negative for trauma or tenderness Mouth ED: No dry mucous membranes Mouth: No dry mucous membranes Eyes EOMs intact bilaterally General Eye ED: Negative for pale conjunctiva, scleral icterus or other Neck no lymphadenopathy, supple and no JVD General: Negative for tenderness Carotids: Negative for other Lymph Lymphatic: Negative for other Resp normal respiratory effort and clear to auscultation bilaterally Effort and Inspection: Negative for respiratory distress Auscultation: Negative for rales, rhonchi or wheezes Cardio regular rate, regular rhythm, S1 normal heart sound, S2 normal heart sound and no murmurs Rate: Negative for bradycardia or tachycardic Rhythm: Negative for abnormal rhythm GI non-tender, non-distended and no masses Inspection: Negative for abdominal distention Auscultation: normoactive bowel sounds Palpation: soft; Negative for tender, guarding or rebound tenderness present Back/Spine no CVA tenderness General Back: Negative for CVA tenderness Cervical Spine: Negative for cervical spine tenderness Thoracic Spine / Upper Back: Negative for thoracic spinal tenderness Lumbar Spine / Lower Back: Negative for lumbar spinal tenderness Coccyx: Negative for other Extremity full ROM General Extremety ED: Negative for edema or tenderness General Extremity: Negative for edema Neuro CN's II-XII intact bilaterally and moves all extremities Sensorium / Orientation: alert, oriented to person, orientation impaired and confused Motor Exam: strength 5/5 throughout Psych mental status grossly normal and thought process normal Appearance: Negative for unkempt Attitude: No agitated Mood & Affect: Negative for depressed, anxious or tearful Skin no wounds General Skin Exam: Negative for jaundice or pallor Lesions: no lesions Rashes: no rashes MDM MDM MDM Narrative Medical decision making narrative: 68-year-old male with lower abdominal and back pain. May or may not be secondary to urinary retention but he is urinating. UTI versus other etiologies. There are no peritoneal signs on his exam. Screening labs, CAT scan and bladder scan postvoid. Repeat exam patient doing well at 9:15 PM. Currently his pain-free. We discussed his test results. He has blood in his urine on CAT scan has a distal 5 mm ureter stone. No infection. His bladder scan only showed 54 mL of urine is not having retention. Patient family okay with him and discharged home. Be started on Flomax once per day for 3 more days. Fluids. Urine strainer. Follow-up with urology as needed. Return if intractable pain, fever or vomiting. We are not can do narcotics due to his dementia. History & Record Review Discussion w/independent historian: Patient Additional record(s) reviewed:: Prior inpatient record, Prior outpatient record, Prior ED visit and Prior labs Lab Data Attestation: I reviewed the patient's lab results. Lab results narrative: CBC shows a white count 1.2. H&H 15 and 43. Platelets 3 of 6. Electrolytes shows a sodium 135 gap 4. Normal BUN of 17 creatinine 1.29. Glucose 121. Liver enzymes are normal. Urinalysis shows 250 occult blood no nitrates. 50- 100 red cells no white cells or bacteria. Labs: Laboratory Results - last 24 hr 05/19/23 18:11 WBC 11.2 H RBC 4.95 Hgb 15.3 Hct 43.3 MCV 87.5 MCH 30.9 MCHC 35.3 RDW Std Deviation 40.0 RDW Coeff of Hi 12.6 Plt Count 306 MPV 8.9 Immature Gran % (Auto) 0.400 Neut % (Auto) 67.8 Lymph % (Auto) 23.5 [place] % (Auto) 7.1 Eos % (Auto) 0.7 Baso % (Auto) 0.5 Absolute Neuts (auto) 7.6 Absolute Lymphs (auto) 2.63 Nucleated RBC % 0 Sodium 135 L Potassium 3.6 Chloride 105 Carbon Dioxide 26.0 Anion Gap 4 L BUN 17 Creatinine 1.29 Estim Creat Clear Calc 65.99 Est GFR (MDRD) Af Amer 71 Est GFR (MDRD) Non-Af 59 L BUN/Creatinine Ratio 13.2 Glucose 121 H Calcium 9.4 Total Bilirubin 1.80 H AST 15 ALT 29 Alkaline Phosphatase 75 Total Protein 8.1 Albumin 4.1 Globulin 4.0 Albumin/Globulin Ratio 1.0 Urine Color Yellow Urine Clarity Clear Urine pH 6.5 Ur Specific [place] 1.015 Urine Protein 30 H Urine Glucose (UA) 50 H Urine Ketones 5 H Urine Occult Blood 250 H Urine Nitrite Negative Urine Bilirubin Negative Urine Urobilinogen 1 H Ur Leukocyte Esterase Negative Urine RBC 50-100 SEEN Urine WBC 0-5 SEEN Ur Squamous Epith Cells 0 SEEN Urine Bacteria 0 SEEN Urine Mucus 0 SEEN Radiography Diagnostic Testing: Clinical Impression(s) from Imaging Studies Abdomen/Pelvis CT 05/19/23 19:52 IMPRESSION: Obstruction of the right kidney collecting system and ureter from a 5 mm distal right ureteral stone. Additional currently nonobstructing bilateral renal stones. Electronically Signed: Jonathan Gage MD at 21:04 EST , Discharge Plan Triage Chief Complaint: Abd Pain ED Provider: Sarthak Daniels Dx/Rx/DC Orders Clinical Impression: Abdominal pain, Kidney stone on right side Instructions: ED Kidney Stone with Pain Prescriptions: New tamsulosin [Flomax] 0.4 mg capsule 0.4 mg PO DAILY 3 Days Qty: 3 0RF No Action loratadine [Claritin] 10 mg tablet 10 mg PO DAILY Qty: 3 0RF aspirin 81 MG tablet,chewable 81 mg PO DAILY@0800 amlodipine-benazepril 10-40 mg capsule 1 cap PO DAILY Qty: 90 0RF donepezil 10 mg tablet 10 mg PO DAILY Qty: 90 0RF paroxetine HCl 10 mg tablet 10 mg PO DAILY Qty: 90 1RF memantine 5 mg tablet 5 mg PO TID Qty: 270 1RF atorvastatin [Lipitor] 10 mg tablet 10 mg PO QHS Qty: 90 1RF Primary Care Provider: Debora Koch Referrals: Debora Koch MD [Primary Care Provider] - 3-5 Days if not improving Nimesh Sutton MD [Med Staff - Active Staff] - 3-5 Days if not improving Activity Restrictions/Additional Instructions: You have a 5 mm kidney stone on the right. It should pass in the next several days. Strain your urine for the possible passage of the stone I will look like a very small piece of gravel. Tylenol for pain. Follow-up with your doctor if not improving. Return to the emergency department if intractable pain, fever or intractable vomiting. Flomax daily for the next 3 days to help the stone pass. Follow-up with the urologist Dr. Alexander Sutton if not improving. Disposition Disposition: Home, Self Care
--- OUTSIDE RECORDS SUMMARY | 2023-05-19 20:13 | XMS RPT_ITS | CCD ---
Author Name Unknown Address [address] [place] [address] Organization [facility] Care Team Providers Care Environmental Resource Specialist Name Role Phone Shahram Matias Unavailable Unavailable UNKNOWN, PROVIDER Unavailable Unavailable Shahram Matias Unavailable Unavailable Shahram Matias Unavailable Unavailable UNKNOWN, PROVIDER Unavailable Unavailable Shahram Matias Unavailable Unavailable TOSIN VALDEZ Unavailable Unavailable PHYSICIAN, NONE Unavailable Unavailable Shahram Matias DO Primary Care Provider ZA RUSSELL Attending Unavailable Medications Current Medications Medication Drug Class(es) Dates Sig (Normalized) Sig (Original) amLODIPine 10 mg / benazepril hydrochloride 40 mg oral capsule (2 sources) Dihydropyridine Calcium Channel Rosalinda, Angiotensin Converting Enzyme Inhibitor Start: 06-09-2022 End: 09-07-2022 take 1 capsule by mouth once daily amLODIPine-benaze pril (Lotrel) 10-40 MG capsule Indications: Essential hypertension Take 1 capsule by mouth daily. 90 capsule 0 06/09/2022 09/07/2022 Active donepezil hydrochloride 10 mg oral tablet (2 sources) Start: 06-30-2022 take 1 tablet by mouth once daily donepezil (Aricept) 10 MG tablet Take 1 tablet (10 mg) by mouth Nightly. 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] Onset: 06-11-2020 Chronic Disorders of lipid metabolism (2 sources) Hypercholesterolemi a; Translations: [Pure hypercholesterolemi a, unspecified] Onset: 06-21-2017 02-08-2022 Chronic Essential hypertension (2 sources) Essential hypertension; Translations: [Essential (primary) hypertension] Onset: 06-21-2017 02-08-2022 Chronic Other hereditary and degenerative nervous system conditions (2 sources) Degenerative disease of nervous system, unspecified; Translations: [Degenerative disease of nervous system, unspecified] Onset: 03-12-2017 Chronic Unclassified (2 sources) 3 Month Follow Up; Translations: [3 Month Follow Up] Onset: 05-04-2022 Past or Other Problems Problem Classification Problem Date Documented Da te Episodic/Chronic Melanomas of skin (2 sources) H/O Malignant melanoma; Translations: [Personal history of malignant melanoma of skin] Onset: 06-21-2017 02-08-2022 Episodic Results Test Name Value Interpretation Reference Range Facil ity Encounters Encounter Date Encounter Type Care Provider Facility Start: 08-10-2022 Telephone encounter Chico mallory DO Work Phone: [facility] Start: 08-05-2022 Refill Chico velazquez DO Work Phone: [facility] Procedures Date Procedure Procedure Detail Performing Clinician Start: 08-17-2017 Colonoscopy Chico shore DO Work Phone: Plan of Treatment Date Care Activity Detail Author Start: 08-18-2027 Screening for malign ant neoplasm of colon [facility] Start: 08-19-2022 End: 08-19-2022 Patient encounter procedure 08/19/2022 Office Visit Family Medicine Chico Oshea DO [address] [place] [id number] [facility] Start: 07-10-2021 Pneumococcal Vaccine : 65+ Years (2 - PCV) Pneumococcal Vaccine: 65+ Years (2 - PCV) [facility] Start: 09-17-2020 COVID-19 Vaccine (3 - Booster for Pfizer series) COVID-19 Vaccine (3 - Booster for Pfizer series) [facility] Start: 2005 Zoster Vaccines (1 of 2) Zoster Vacc doc (1 of 2) [facility] Start: 1974 DTaP/Tdap/Td Vaccine s (1 - Tdap) DTaP/Tdap/Td Vaccines (1 - Tdap) [facility] Start: 1973 Hepatitis C screening Hepatitis C Sc reening [facility] Start: 1955 Hepatitis B Vaccines (1 of 3 - 3-dose series) Hepatitis B Vaccines (1 of 3 - 3-dose series) [facility] Start: 1955 Lipid panel Lipid Panel [facility] Start: 1955 Screening for malign ant neoplasm of colon [facility] Immunizations Immunization Date Immunization Notes Care Provider Fa cility 01-22-2022 Influenza, Seasonal, Quadrivalent, Adjuvanted Chico Oshea DO Work Phone: [facility] 01-22-2022 unknown vaccine or i mmune globulin Chico Oshea DO Work Phone: [facility] 02-20-2021 influenza, injectabl e, quadrivalent, preservative free Chico Oshea DO Work Phone: [facility] 07-23-2020 Pfizer SARS-CoV-2 Vaccination Chico Oshea DO Work Phone: [facility] 07-10-2020 pneumococcal polysac charide vaccine, 23 valent Chico Oshea DO Work Phone: [facility] 07-02-2020 Pfizer SARS-CoV-2 Vaccination Chico Oshea DO Work Phone: [facility] 03-05-2020 influenza, injectabl e, quadrivalent, preservative free Chico Oshea DO Work Phone: [facility] 04-18-2019 influenza, injectabl e, quadrivalent, contains preservative Chico Oshea DO Work Phone: [facility] 02-02-2018 influenza, injectabl e, quadrivalent, contains preservative Chico Oshea DO Work Phone: [facility] 02-07-2014 influenza virus vacc ine, unspecified formulation Chico Oshea DO Work Phone: [facility] 02-07-2014 influenza, seasonal, injectable Chico Oshea DO Work Phone: [facility] Payers Date Payer Category Payer Medicare [id number] 2022 Medicare [id number] 2016 Unknown [id number] Unknown Social History Date Type Detail Facility Tobacco smoking status NHIS Ex-smoker [facility] End: 02-21-1990 History of tobacco use Current smoker [facility] End: 02-21-1990 History of tobacco use Cigarette Smoker [facility] Start: 08-05-2022 Alcohol intake Lifetime non-d panchito (finding) [facility] Start: 08-05-2022 Alcohol intake [facility] Start: 1955 Sex Assigned At Not on file [facility] Telephone encounter Note 08-10-2022 Telephone Encounter - Viviana Gibbons - 08/10/2022 1:49 PM EDT Note Date & Type Note Facility 08-10-2022 Telephone encounter Note Form atting of this note might be different from the original. Error [facility] Note 08-10-2022 Telephone Encounter - Viviana Gibbons - 08/10/2022 1:49 PM EDT Note Date & Type Note Facility 08-10-2022 Miscellaneous Notes Formattin g of this note might be different from the original. Error documented in this encounter [facility] Telephone encounter Note 08-05-2022 Telephone Encounter - Sarah Gold LPN - 08/05/2022 3:54 PM EDT Note Date & Type Note Facility 08-05-2022 Telephone encounter Note Form atting of this note might be different from the original. Rx loaded Last ov 05/04/22 Next ov 08/19/22 [facility] Note 08-05-2022 Telephone Encounter - Sarah Gold LPN - 08/05/2022 3:54 PM EDTTelephone Encounter - Heidi Carvajal - 08/05/2022 2:20 PM EDT Note Date & Type Note Facility 08-05-2022 Miscellaneous Notes Formattin g of this note might be different from the original. Rx loaded Last ov 05/04/22 Next ov 08/19/22 Medication name: Memantine Medication dosage: 5 mg (Miligrams Monthly quantity needed: 270 How many day supply requestin days Medication route: oral (PO) Medication administration time(s): Take 2 tabs in the am and 1 in the pm If taking medication PRN, reason for taking medication: N/A If this is a controlled substance do you receive this or any other controlled medication from any other doctor or facility: No Ordering provider: Dr Oshea Date of last office visit: 05.04.22 Date of next office visit: 08.19.22 Date of last refill: (see medication tab): 05.19.22 Updated/Validated preferred pharmacy: Yes Patient instructed to contact the pharmacy prior to picking up the medication: Yes documented in this encounter [facility] Telephone encounter Note 08-05-2022 Telephone Encounter - Heidi Carvajal - 08/05/2022 2:20 PM EDT Note Date & Type Note Facility 08-05-2022 Telephone encount er Note Medication name: Memantine Medication dosage: 5 mg (Miligrams Monthly quantity needed: 270 How many day supply requestin days Medication route: oral (PO) Medication administration time(s): Take 2 tabs in the am and 1 in the pm If taking medication PRN, reason for taking medication: N/A If this is a controlled substance do you receive this or any other controlled medication from any other doctor or facility: No Ordering provider: Dr Oshea Date of last office visit: 05.04.22 Date of next office visit: 08.19.22 Date of last refill: (see medication tab): 05.19.22 Updated/Validated preferred pharmacy: Yes Patient instructed to contact the pharmacy prior to picking up the medication: Yes [facility] Evaluation note Note Date & Type Note Facility documented in this encounter [facility] Summary Purpose Family History No Family History Records FoundNo Family History Records FoundNo Family History Records FoundNo Family History Records Found Advance Directives No Advanced Directives Records FoundNo Advanced Directives Records FoundNo Advanced Directives Records FoundNo Advanced Directives Records Found Additional Source Comments (unrecognized sect ion and content) No Status Records FoundNo Status Records FoundNo Status Records FoundNo Status Records Found INFORMATION SOURCE (unrecogn ized section and content) DATE CREATED AUTHOR AUTHOR'S ORGANIZ ATION 10/20/2017 [facility] ([place]) DATE CREATED AUTHOR AUTHOR'S ORGANIZ ATION 08/11/2022 [facility] Reason for Visit (unrecogniz ed section and content) Reason Onset Date Comments Error (VOID this visit) 08/10/2022 Care Teams (unrecognized sec tion and content) Environmental Resource Specialist Relationship Specialty Start Date End Date Shahram Matias, [address] [place] [address] PCP - General 02/22/15 FOR RECORDS PERTAINING TO PATIENTS WHO ARE OR HAVE BEEN ENROLLED IN A CHEMICAL DEPENDENCY/SUBSTANCEABUSE PROGRAM, SOME INFORMATION MAY BE OMITTED. This clinical summary was aggregated from multiple sources. Caution should be exercised in using it in the provision of clinical care. This summary normalizes information from multiple sources, and as a consequence, information in this document may materially change the coding, format and clinical context of patient data. In addition, data may be omitted in some cases. CLINICAL DECISIONS SHOULD BE BASED ON THE PRIMARY CLINICAL RECORDS. [facility]. provides no warranty or guarantee of the accuracy or completeness of information in this document.
[2023-05-19 21:18] VITALS: BP 110/91; PULSE 82; RESP 25; O2SAT 97
[2023-05-19] MEDS: Tamsulosin HCl 0.4 MG Capsule 0.400000000000000022 MG PO (21:45)
[2023-05-19 21:47] VITALS: BP 110/91; PULSE 82; RESP 22; O2SAT 94
== END 2023-05-19 21:47 | disposition home or self-care (01) ==
PROVIDERS: Emergency Provider Emergency Medicine; PCP Internal Medicine; Visit Provider Emergency Medicine
DX: N20.0 Calculus of kidney (principal); F03.90 Unspecified dementia, unspecified severity, without behavioral disturbance, psychotic disturbance, mood disturbance, and anxiety; I10 Essential (primary) hypertension; R35.0 Frequency of micturition; Z79.82 Long term (current) use of aspirin; Z79.899 Other long term (current) drug therapy; Z87.891 Personal history of nicotine dependence; Z90.49 Acquired absence of other specified parts of digestive tract
CPT/HCPCS: 74177; 80053; 81001; 85025; 99283; Q9967; A4216

== ENCOUNTER → 2023-09-07 | Outpatient (CLI) | payer MEDICARE, SELFPAY ==
[2023-09-07 12:46] LABS: Absolute Lymphocyte Count 2.35 X10^3/uL (0.83-4.51); Basophil# 0.06 X10^3/uL; Basophil% 0.8 % (0-1); Eosinophil# 0.09 X10^3/uL; Eosinophils% 1.3 % (0-5); Hematocrit 44.7 % (40-54); Hemoglobin 15.8 g/dL (13.0-16.5); Lymphocyte # 2.35 X10^3/ul (0.83-4.51); Lymphocyte % 33.2 % (19-41); Mean Corp Hgb Conc 35.3 g/dL (32-36); Mean Corpuscular Hgb 31.8 pg (27.0-32.0); Mean Corpuscular Volume 89.9 fL (80-94); Monocyte# 0.56 X10^3/uL; Monocyte% 7.9 % (0-10); NRBC Flagged by Analyzer 0 % (0-5); Neutrophil # 3.98 X10^3/uL (2.7-7.7); Neutrophil % 56.2 % (47-70); Platelet Count 276 K/mm3 (150-450); RBC Distribution Width CV 12.6 % (11.6-14.6); RBC Distribution Width SD 41.7 fl (35.1-43.9); Red Blood Count 4.97 M/mm3 (4.6-6.2); White Blood Count 7.1 K/mm3 (4.4-11.0)
[2023-09-07 13:01] LABS: AST(SGOT) 21 U/L (15-37); Alanine Aminotransfer ALT/SGPT 33 U/L (16-61); Albumin, Serum 4.1 g/dL (3.2-5.0); Alkaline Phosphatase 72 U/L (45-117); Anion Gap 6 (5-15); BUN 16 mg/dL (7-18); BUN/Creat Ratio 13.3 RATIO (10-20); Calcium,Total 9.3 mg/dL (8.5-10.1); Chloride 104 mmol/L (98-107); Cholesterol 125 mg/dL (200); EST Glomerular Filtration Rate 64 mL/min (>60); Est Glom Filt Rate - Afr Amer 77 mL/min (>60); Glucose 99 mg/dL (74-106); High Density Lipoprotein 48 mg/dL; Protein, Total 8.1 g/dL (6.4-8.2); Sodium Level 138 mmol/L (136-145); Triglycerides 120 mg/dL; Very Low Density Lipoprotein 24 mg/dL (5-40)
[2023-09-08 16:46] LABS: Bilirubin, Direct 0.44 mg/dL (0.00-0.30)
== END | disposition home or self-care (01) ==
PROVIDERS: PCP Internal Medicine; Referring Provider Internal Medicine; Visit Provider Internal Medicine
DX: I10 Essential (primary) hypertension (principal); E55.9 Vitamin D deficiency, unspecified; R17 Unspecified jaundice
CPT/HCPCS: 36415; 80053; 80061; 82247; 82248; 85025

== ENCOUNTER → 2023-09-24 | Outpatient (CLI) | payer MEDICARE, SELFPAY ==
--- NOTE | 2023-09-24 10:11 | US_ITS ---
STUDY: ABDOMINAL ULTRASOUND - RIGHT UPPER QUADRANT REASON FOR VISIT: Male, 68 years old elevated bilirubin TECHNIQUE: Ultrasound evaluation of the right upper quadrant was performed with real-time and static ann-scale imaging. TECHNICAL QUALITY: Limited. Examination limited by bowel gas. COMPARISON: None. FINDINGS: Liver: The liver measures 17 cm. There is normal echogenicity of the liver. The bile ducts are within normal limits. There is hepatic color flow. The direction of portal flow is hepatopetal. There is no demonstrated mass lesion. Gallbladder: The patient is status post cholecystectomy. Common Bile Duct (C.B.D.): The common bile duct measures 5.2 mm. Pancreas: Normal size of the head, body and tail of the pancreas. There is increased echogenicity of the pancreas. There is no demonstrated pancreatic mass or cyst. Right Kidney: Normal size of the right kidney. The right kidney measures 11.7 cm x 6.4 cm x 5.7 cm. Normal renal cortex. The right cortex measures 1.5 cm. There is no demonstrated renal mass or cyst. There is no right hydronephrosis. 3 mm nonobstructive right intrarenal calculus. US/Liver IMPRESSION: Borderline hepatomegaly. Status post cholecystectomy. 3 mm nonobstructive right intrarenal calculus. Electronically Signed: Jose Mixon MD at 12:16 EDT ,
== END | disposition home or self-care (01) ==
PROVIDERS: PCP Internal Medicine; Referring Provider Internal Medicine; Visit Provider Internal Medicine
DX: R17 Unspecified jaundice (principal)
CPT/HCPCS: 76705

== ENCOUNTER 2023-10-20 09:14 | Outpatient (CLI) | payer MEDICARE, SELFPAY ==
[2023-10-20 12:28] LABS: AST(SGOT) 17 U/L (15-37); Alanine Aminotransfer ALT/SGPT 28 U/L (16-61); Albumin, Serum 3.9 g/dL (3.2-5.0); Alkaline Phosphatase 73 U/L (45-117); Bilirubin, Direct 0.35 mg/dL (0.00-0.30); Protein, Total 7.9 g/dL (6.4-8.2)
[2023-10-21 05:07] LABS: HEPATITIS B SURFACE AG Negative (Negative); Hep C Antibodies Non Reactive (Non Reactive); Hepatitis A IgM Antibody Negative (Negative); Hepatitis B Core AB IgM Negative (Negative)
[2023-10-21 15:08] LABS: ANTINUCLEAR ANTIBODIES DIRECT Negative (Negative); Anti-Mitochondrial AB <20.0 Units (0.0-20.0)
== END 2023-10-20 23:59 | disposition home or self-care (01) ==
LOC: BIMLAB 09:14
PROVIDERS: PCP Internal Medicine; Visit Provider Internal Medicine
DX: R74.8 Abnormal levels of other serum enzymes (principal); R74.01 Elevation of levels of liver transaminase levels
CPT/HCPCS: 36415; 80074; 80076; 83516; 86038; 86225; 86235

== ENCOUNTER → 2024-04-27 | Outpatient (CLI) | payer MEDICARE, SELFPAY | END | disposition home or self-care (01) | LOC: LABSPEC 12:28 | PROVIDERS: PCP Internal Medicine; Referring Provider Physician Assistant Surgical; Visit Provider Physician Assistant Surgical | DX: R35.0 Frequency of micturition (principal) | CPT/HCPCS: 87086; 87088 ==

== ENCOUNTER → 2024-05-04 | Outpatient (CLI) | payer MEDICARE, SELFPAY ==
[2024-05-04 13:34] LABS: Bacteria 0 SEEN /hpf (None Seen); Mucous, Urine 0 SEEN /hpf (<or=2+); Red Blood Cells-Urine 0 SEEN /hpf (0-5)
[2024-05-04 15:10] LABS: Color, Urine Yellow (Yellow); Glucose, Dipstick Normal (Normal); Ketone-Dipstick Negative (Negative); Leukocyte Esterase-Dipstick 25 /ul (Negative); Nitrite-Dipstick Negative (Negative); Occult Blood-Urine Negative /ul (Negative); Protein-Dipstick 15 mg/dl (Negative); Urine Bilirubin Dipstick Negative (Negative); Urine Clarity Clear (Clear); Urine Urobilinogen Normal (Normal)
[2024-05-04 15:19] LABS: Squamous Epithelial Cells - UA 0-5 SEEN /hpf (0-5); White Blood Cells 0-5 SEEN /hpf (0-5)
== END | disposition home or self-care (01) ==
LOC: LABSPEC 13:30
PROVIDERS: PCP Internal Medicine; Referring Provider Internal Medicine; Visit Provider Internal Medicine
DX: N30.90 Cystitis, unspecified without hematuria (principal)
CPT/HCPCS: 81001; 87086

== ENCOUNTER → 2024-05-10 | Outpatient (CLI) | payer MEDICARE, SELFPAY ==
[2024-05-10 15:12] LABS: Absolute Lymphocyte Count 1.95 X10^3/uL (0.83-4.51); Absolute Neutrophil Count 5.9 X10^3/uL (2.0-7.7); Basophil# 0.05 X10^3/uL; Basophil% 0.6 % (0-1); Eosinophil# 0.07 X10^3/uL; Eosinophils% 0.8 % (0-5); Hematocrit 44.7 % (40-54); Hemoglobin 15.5 g/dL (13.0-16.5); Lymphocyte # 1.95 X10^3/ul (0.83-4.51); Lymphocyte % 22.6 % (19-41); Mean Corp Hgb Conc 34.7 g/dL (32-36); Mean Corpuscular Hgb 31.4 pg (27.0-32.0); Mean Corpuscular Volume 90.7 fL (80-94); Mean Platelet Vol. 10.2 fl (6.2-12.0); Monocyte# 0.63 X10^3/uL; Monocyte% 7.3 % (0-10); NRBC Flagged by Analyzer 0 % (0-5); Neutrophil # 5.89 X10^3/uL (2.7-7.7); Neutrophil % 68.1 % (47-70); Platelet Count 271 K/mm3 (150-450); RBC Distribution Width CV 12.8 % (11.6-14.6); RBC Distribution Width SD 42.2 fl (35.1-43.9); Red Blood Count 4.93 M/mm3 (4.6-6.2); White Blood Count 8.6 K/mm3 (4.4-11.0)
[2024-05-10 15:40] LABS: Vitamin B12 326 pg/mL (211-911); Vitamin D,25 Hydroxy 14.8 ng/mL
[2024-05-10 15:56] LABS: ALB/GLOB Ratio 1.1 RATIO (0.9-2.4); AST(SGOT) 15 U/L (15-37); Alanine Aminotransfer ALT/SGPT 25 U/L (16-61); Albumin, Serum 3.9 g/dL (3.2-5.0); Alkaline Phosphatase 64 U/L (45-117); Anion Gap 5 (5-15); BUN 14 mg/dL (7-18); BUN/Creat Ratio 11.9 RATIO (10-20); Calcium,Total 9.1 mg/dL (8.5-10.1); Chloride 105 mmol/L (98-107); Cholesterol 208 mg/dL (200); Creatinine, Serum 1.18 mg/dL (0.70-1.30); EST Glomerular Filtration Rate 65 mL/min (>60); Est Glom Filt Rate - Afr Amer 79 mL/min (>60); Globulin 3.7 g/dL (2.2-4.2); Glucose 104 mg/dL (74-106); High Density Lipoprotein 55 mg/dL; Potassium 4.2 mmol/L (3.5-5.1); Protein, Total 7.6 g/dL (6.4-8.2); Sodium Level 141 mmol/L (136-145); Triglycerides 143 mg/dL; Very Low Density Lipoprotein 29 mg/dL (5-40)
== END | disposition home or self-care (01) ==
LOC: BIMLAB 13:34
PROVIDERS: PCP Internal Medicine; Referring Provider Internal Medicine; Visit Provider Internal Medicine
DX: I10 Essential (primary) hypertension (principal); F03.B4 Unspecified dementia, moderate, with anxiety; E55.9 Vitamin D deficiency, unspecified
CPT/HCPCS: 36415; 80053; 80061; 82306; 82607; 85025